=== PATIENT | female | born 1950 | race Caucasian/White ===

== ENCOUNTER 2018-10-20 07:43 | Outpatient (CLI) | payer MEDICARE, BC ==
--- NOTE | 2018-10-20 10:15 | CT ---
CT OF ABDOMEN AND PELVIS WITH CONTRAST: COMPARISON: No prior comparison. INDICATION: Left lower abdominal pain. FINDINGS: There is mild interstitial prominence of the imaged lung bases and pleural-based density. Small hepa tic hypodensities are too small to further characterize. No acute abnormality of the pancreas or spl een. No evidence of adrenal mass. There is slight nonspecific fullness of each renal collecting sys tem without hydroureter. No urolithiasis or perinephric inflammation. There is symmetric enhancemen t of each kidney. Contrast-opacified small bowel is normal in caliber. There are numerous colonic d iverticula. There is no CT evidence to confirm acute diverticulitis. No free air. No ascites. Mil d vascular calcification. Small hiatal hernia. The osseous structures reveal no acute process. IMPRESSION: 1. Colonic diverticulosis, without CT evidence of acute diverticulitis. 2. Small hepatic hypodensities, too small to further characterize. 3. Small hiatal hernia. POS: [facility]
== END 2018-10-20 07:44 | disposition home or self-care (01) ==
LOC: BICCT 07:43
PROVIDERS: ATTEND Physician Assistant Medical
DX: R10.32 Left lower quadrant pain (principal); L29.0 Pruritus ani; R14.3 Flatulence; R14.1 Gas pain; R14.2 Eructation; K44.9 Diaphragmatic hernia without obstruction or gangrene; K57.30 Diverticulosis of large intestine without perforation or abscess without bleeding; K76.89 Other specified diseases of liver
CPT/HCPCS: 74177; 82565

== ENCOUNTER 2021-12-23 13:49 | Outpatient (CLI) | payer MEDICARE, BC ==
[2021-12-23 15:36] LABS: #Eosinphils 0.1 10x3/uL (0.0-0.5); #Monocytes 0.5 10x3/uL (0.0-1.1); #Neutrophils 3.6 10x3/uL (1.5-8.4); %Basophils 0.7 % (0.0-2.0); %Lymphocytes 28.5 % (18.0-47.0); %Monocytes 8.2 % (0.0-10.0); %Neutrophils 60.4 % (40.0-75.0); Hemoglobin 11.9 g/dL (12.0-15.5); Mean Corpuscular HGB CONC 31.9 g/dL (32.0-36.0); Mean Corpuscular Hemoglobin 28.3 pg (27.0-33.0); Mean Corpuscular Volume 88.8 fl (81.6-98.3); Mean Platelet Volume 10.3 fl (7.4-10.4); Platelet Count 268 10x3/uL (150-450); RBC Distribution Width 14.6 % (11.5-14.5)
[2021-12-23 15:56] LABS: Anion Gap 13 mmol/L (10-20); BUN (Urea Nitrogen) 14 mg/dL (9.8-20.1); Calc. Creatinine Clearance 0 mL/min (70-130); Calcium 9.2 mg/dL (7.8-10.44); Carbon Dioxide 26 mmol/L (23-31); Chloride 109 mmol/L (98-107); Estimated GFR 85; Glucose 88 mg/dL (83-110); Potassium 4.6 mmol/L (3.5-5.1); Sodium 143 mmol/L (136-145)
== END 2021-12-23 13:50 | disposition home or self-care (01) ==
LOC: LABBT 13:49
PROVIDERS: ATTEND Orthopaedic Surgery
DX: Z01.818 Encounter for other preprocedural examination (principal)
CPT/HCPCS: 71046; 80048; 85025; 93005; 93010

== ENCOUNTER 2021-12-25 08:45 | Day surgery (SDC) | payer MEDICARE, BC ==
[2021-12-24 15:03] VITALS: BMI 34.3
[2021-12-25] MEDS ORDERED: Ropivacaine 0.5% HCl/PF (150 MG/30 ML VIAL) ONE (10:44)
[2021-12-25] MEDS ORDERED: FENTANYL 50 MCG/ML 1 ML VIAL ONE (10:44)
[2021-12-25] MEDS ORDERED: Midazolam HCl 2 mg/2 ml Vial ONE (10:44)
[2021-12-25] MEDS ORDERED: Sodium Chloride 0.9% 100 ML ONE (11:30)
[2021-12-25] MEDS ORDERED: fentaNYL PF 100 MCG/2 ML SYRINGE ONE (11:30)
[2021-12-25] MEDS ORDERED: CEFAZOLIN 2 GM VIAL ONE (11:30)
[2021-12-25] MEDS ORDERED: Dexamethasone 20 MG/5 ML VIAL ONE (11:45)
[2021-12-25] MEDS ORDERED: PROPOFOL 200 MG/20 ML VIAL ONE (11:45)
[2021-12-25] MEDS ORDERED: Ketorolac Tromethamine 30 MG/ML VIAL ONE (11:45)
[2021-12-25] MEDS ORDERED: Ondansetron PF 4 MG/2 ML Vial ONE (11:45)
== END 2021-12-25 15:23 | disposition home or self-care (01) ==
LOC: SDC 08:45
PROVIDERS: ATTEND Orthopaedic Surgery
PROC: 0PSJ04Z Reposition Left Radius with Internal Fixation Device, Open Approach (ICD-10-PCS; principal; 2021-12-25)
DX: S52.562A Barton's fracture of left radius, initial encounter for closed fracture (principal); M25.512 Pain in left shoulder; M25.522 Pain in left elbow; K21.9 Gastro-esophageal reflux disease without esophagitis; E03.9 Hypothyroidism, unspecified; I48.91 Unspecified atrial fibrillation; E78.5 Hyperlipidemia, unspecified; M19.90 Unspecified osteoarthritis, unspecified site; M81.0 Age-related osteoporosis without current pathological fracture; I45.10 Unspecified right bundle-branch block; Z88.5 Allergy status to narcotic agent; W19.XXXA Unspecified fall, initial encounter
CPT/HCPCS: 25608; 73110; 93005; J3010; 93010; C1713; J1100; J1885; J2250; J2405; J2704; J2795; J3490